=== PATIENT | female | born 1980 | race Caucasian/White ===

== ENCOUNTER 2018-07-07 01:26 | Outpatient (CLI) | payer OTHER, SELFPAY ==
--- NOTE | 2018-07-07 11:37 | DI.MAMMO_ITS ---
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 The breasts are heterogeneously dense. No dominant mass or clumped microcalcification is identified in either breast. Scattered punctate microcalcifications are noted, predominantly in the left breast. Today's examination is a baseline examination. CONCLUSION: No specific evidence of malignancy at this time. Routine screening examinations are suggested at yearly intervals due to the family history of breast carcinoma. Category 1, breast density category C. MQSA ASSESSMENT OF FINDINGS: Negative. Category 1. Patient will receive a letter notifying them of these results. Bi-RADS category C. The breasts are heterogeneously dense, which may obscure small masses.
== END 2018-07-07 01:46 ==
PROVIDERS: PCP Emergency Medicine; Visit Provider Obstetrics & Gynecology
DX: Z12.31 Encounter for screening mammogram for malignant neoplasm of breast (principal); Z80.3 Family history of malignant neoplasm of breast
CPT/HCPCS: 77063; 77067

== ENCOUNTER 2018-08-09 15:13 | Outpatient (CLI) | payer OTHER, SELFPAY ==
--- NOTE | 2018-08-09 15:07 | DI.RAD_ITS ---
SYMPTOMS/DIAGNOSIS: ANKLE PAIN LEFT ANKLE: Comparison is made with [id number]. There is narrowing of the tibiotalar joint space greater laterally. There is also narrowing of the talofibular joint. There is mild periarticular spurring. No talar dome defect is visible. Degenerative changes are also seen at the talocalcaneal joint. The findings have slightly worsened when compared with 2014. IMPRESSION: Degenerative changes of the ankle.
== END 2018-08-09 15:33 ==
PROVIDERS: PCP Emergency Medicine; Visit Provider Physician Assistant Surgical
DX: M25.572 Pain in left ankle and joints of left foot (principal); M19.072 Primary osteoarthritis, left ankle and foot
CPT/HCPCS: 73610

== ENCOUNTER 2018-08-20 00:45 | Outpatient (CLI) | payer OTHER, SELFPAY ==
--- NOTE | 2018-08-20 11:41 | DI.MRI_ITS ---
SYMPTOM/DIAGNOSIS: LT ANKLE PAIN, M25.572 LEFT ANKLE MRI: Routine noncontrast examination. Comparison xray is 08/09/18. Post surgical artifact is seen in the lateral ankle. This does decrease evaluation of the lateral ankle ligaments and peroneal tendons. The medial ankle ligaments are intact as are the Achilles tendon and anterior ankle ligaments. Portions of the peroneal tendons are obscured due to the surgical artifact but appear grossly intact. The medial ankle ligaments are unremarkable. The anterior and posterior tibiofibular ligaments are intact. The posterior talofibular ligament appears intact. The anterior talofibular ligament is not well seen. This may in part be due to the orthopedic artifact. The calcaneal fibular ligament is poorly visualized due to the orthopedic hardware. There is marrow edema seen in the distal tibia and fibula and talus and calcaneus. No definite evidence to suggest an occult fracture or avascular necrosis is appreciated. Mild edema is seen in the soft tissues of the lateral ankle but no focal fluid collection is seen to suggest an abscess. The muscles show normal signal and size. No significant muscular fatty atrophy is appreciated. IMPRESSION: Limited examination of the lateral ankle due to the patient's post surgical artifact. Incomplete evaluation of the calcaneofibular and anterior talofibular ligaments is noted due to the artifact. Marrow edema seen in the hind foot and ankle but no evidence to suggest an occult fracture. No definite evidence of a ligament or tendon tear. See the above discussion.
== END 2018-08-20 01:05 ==
PROVIDERS: PCP Emergency Medicine; Visit Provider Student in an Organized Health Care Education/Training Program
DX: M25.572 Pain in left ankle and joints of left foot (principal); M89.9 Disorder of bone, unspecified; Z98.890 Other specified postprocedural states
CPT/HCPCS: 73721

== ENCOUNTER 2018-09-30 01:20 | Outpatient (CLI) | payer OTHER, SELFPAY ==
--- NOTE | 2018-09-30 08:03 | DI.RAD_ITS ---
SYMPTOM/DIAGNOSIS: LT ANKLE PAIN M25.572, CHRONIC 689.29 LEFT ANKLE INJECTION: Fluoroscopy Time: 4 sec Fluoroscopy was utilized by Dr. Ortiz during the performance of a left ankle injection. No images were saved. Please refer to the procedure report for complete details.
[2018-09-30] MEDS: Bupivacaine 0.5% Pres-Free 10 ML VIAL 3 ML IJ (10:44)
[2018-09-30] MEDS: Omnipaque 300 MG/ML 10 ML BTL IJ (10:44)
[2018-09-30] MEDS: methylPREDNISolone ACETATE 40 MG/ML VIAL IM (10:45)
--- NOTE | 2018-09-30 11:32 | W.PROCNOTE ---
Date of service: 09/30/18 Time of Service: 11:32 Procedure Note Date of procedure: 09/30/18 Procedure: Left ankle injection Surgeon/Proceduralist/Physician: Pascual Ortiz Procedure Diagnosis: Left ankle chondromalacia Procedure Indications: Albina has had persistent pain of the LEFT ankle from previous surgeries. Noninvasive measures have been tried. To serve as both diagnostic and therapeutic, an injection under fluoroscopy was recommended. I had discussed the risks of the procedure and the patient elected to proceed. Procedure Description: Albina was greeted in the flouroscopy room. The correct side was identified and the consent was reviewed with the patient and signed. The patient was then placed in the supine position on the fluoroscopy table. The LEFT ankle was then prepped with Chloraprep. The anterior injection starting point, at the medial shoulder, was identiifed by bony landmarks and fluoroscopy. The skin and soft tissue in the tract of the injection was anesthetized with 1% Lidocaine. A needle was then inserted deep into the ankle joint at the level of the recess between the medial tibia and talus. A small amount of Omnipaque solution was injected to confirm intraarticular placement. Once confirmed, the ankle was injected with 3cc of 0.5% Bupivicaine and 40mg of Depo-Medrol. Fluoroscopy showed contrast medial, superior, and lateral between the distal fibula and talus. The satellite tv technician was unable to save images due to malfunctioning of the system. A bandaid was placed on the injection site. The patient tolerated the procedure well and noted improvement in pre-injection pain.
== END 2018-09-30 01:40 ==
PROVIDERS: PCP Emergency Medicine; Visit Provider Student in an Organized Health Care Education/Training Program
DX: M25.572 Pain in left ankle and joints of left foot (principal); M94.272 Chondromalacia, left ankle and joints of left foot; G89.29 Other chronic pain
CPT/HCPCS: 20605; 77002; J1030

== ENCOUNTER 2020-04-03 08:09 | Outpatient (CLI) | payer OTHER, SELFPAY ==
[2020-04-05 07:30] LABS: COVID-19 RT-PCR Result NEGATIVE (Negative)
== END 2020-04-03 08:29 ==
PROVIDERS: PCP Emergency Medicine; Visit Provider Emergency Medicine
DX: Z11.59 Encounter for screening for other viral diseases (principal)
CPT/HCPCS: U0003

== ENCOUNTER 2021-12-09 21:33 | Observation (INO) | payer OTHER, SELFPAY ==
[2021-12-09 21:41] VITALS: BP 85/49; PULSE 70; RESP 18; TEMP 36.6; O2SAT 100
[2021-12-09 21:46] VITALS: BP 131/66
--- NOTE | 2021-12-09 22:00 | DI.CT_ITS ---
Exam(s) CT ABDOMEN PELVIS W EXAM: CT ABDOMEN PELVIS W INDICATION: RLQ pain. COMPARISON: No exams were available for comparison TECHNIQUE: FINDINGS: CT examination of the abdomen and pelvis was performed with a bolus infusion of 87 cc of Omnipaque 35 0. Images obtained through the lung bases are unremarkable. The liver contains an approximately 5 cm in diameter low-attenuation mass, this has areas predominant ly peripheral nodular enhancement suggestive of hemangioma. Multiphasic hepatic CT or MR recommended to confirm hemangioma, malignancy not absolutely excluded on this examination. Otherwise hepatic parenchyma is unremarkable except for a 1 cm low-attenuation left hepatic lobe nodu le and 1 cm low-attenuation peripherally enhancing right lobe hepatic nodule, consistent with benign disease period. Gallbladder and bile ducts are CT normal. Pancreas appears normal. Spleen is unremarkable in appearance. Adrenals appear normal. The kidneys are unremarkable with no evidence of hydronephrosis, nephrolithiasis, or renal mass.. Ur inary bladder unremarkable. Abdominal aorta is of normal diameter and no major vascular abnormality is seen. No abdominal wall hernia. No abdominal or pelvic adenopathy. There is a 13 cm in diameter heterogeneous mass in the pelvis, predominantly of intermediate attenuat ion raising the possibility of hemorrhagic process. There is a left corpus luteum. There is a large quantity of free fluid in pelvis and some free fluid is also seen in the upper abdominal cavity, adj acent to liver. The appearance would be consistent with a large hemorrhagic ovarian cyst or other he morrhagic or malignant mass of the pelvis. Additional evaluation with pelvic.ultrasound recommended. Appendix is normal. No evidence of diverticulitis or bowel obstruction. IMPRESSION: Large pelvic mass, suspect hemorrhagic characteristics, free fluid also noted in peritoneal cavity. Additional evaluation with pelvic ultrasound recommended.. RADIATION DOSE DELIVERED: 710.37mGy.cm Total DLP 710.37mGy.cm Total DLP !Error CTDIvol RADIATION OPTIMIZATION: All CT scans at this facility use at least one of these dose optimization te chniques: automated exposure control; mA and/or kV adjustment per patient size (includes targeted exa ms where dose is matched to clinical indication); or iterative reconstruction.
--- NOTE | 2021-12-09 22:05 | W.ED.GENAD ---
Discharge Plan Disposition Condition: Good Discharge Details Chief Complaint: Abd Prob Admit Date/Time: 12/10/21 00:37 Admit Provider: Nay Oseguera Attending Provider: Nay Oseguera Primary Care Provider: Brett Quick ED Provider: Peng Mcclendon Discharge Instructions Activity:: No strenuous activity x2w Equipment/Supplies:: No Equipment Needed Diet:: As Tolerated Discharge Orders Discharge Orders: Discharge Order (Routine); Ordered 12/10/21 Ordered By: Lisha Newman Discharge Data Discharge Date/Time-TO BE ENTERED AT DEPARTURE: 12/10/21 02:17 Medical Decision Making Patient is a pleasant 41-year-old female presenting today with chief complaint of right lower quadrant pain. She reports the pain began approximately 1.5 hours prior to arrival. States that this came on not long after eating dinner. Describes eating pizza with vegetables. States she has had multiple episodes of vomiting since the pain came on. She did have 1 bowel movement which she describes as normal. She denies any pain like this historically. Past surgical history is pertinent for exploratory laparoscopy for endometriosis. Patient has an IUD in place, she does not have a monthly menses. She denies any vaginal discharge. On exam, patient appears uncomfortable. She indicates the entire right lower quadrant as area of discomfort. However, no pain is focally elicited with palpation. No CVA tenderness. Patient otherwise appears healthy. Past medical history significant for endometriosis and anxiety. Concern at this time for potential appendicitis. Pain seems to be indicated to be a little higher than I would back for ovarian torsion. She denies any history of ovarian cyst. She denies being . We will obtain a UPT out of abundance of caution. Will obtain CT to evaluate for any potential ovarian as well as possible appendicitis. Also considered other pathology such as nephrolithiasis. Patient denies any urinary symptoms. Will treat pain and nausea, move forward with imaging. UPT negative. Labs reviewed, no significant abnormality. Reviewed imaging, concerned for large right ovarian cyst, 8.5cm. Have requested US tech. Awaiting CT images from radiologist. Unable to obtain US this evening. Waiting for read and will consult with OBGYN. FINDINGS: Liver: There is a 5.1 x 4.3 x 5.1 cm large round cystic structure within the liver. There are small peripheral regions of enhancement within this lesion, suggestive of a hemangioma. Gallbladder and bile ducts: No calcified stones. No ductal dilation. Pancreas: Normal. No ductal dilation. Spleen: Normal. No splenomegaly. Adrenal glands: Normal. No mass. Kidneys and ureters: Normal. No hydronephrosis. Stomach and bowel: Unremarkable. No obstruction. No mucosal thickening. Appendix: No evidence of appendicitis. Intraperitoneal space: There are small regions of free fluid in the abdomen and pelvis, predominantly in the perihepatic region and in the lower pelvis. No free air. Vasculature: No abdominal aortic aneurysm. Lymph nodes: No enlarged lymph nodes. Urinary bladder: The urinary bladder is displaced anteriorly, secondary to mass effect from the large pelvic lesion. Reproductive: There is a large heterogeneous cystic structure in the right aspect of the pelvis measuring approximately 13.0 x 7 x 7.9 cm. This lesion is heterogeneous with regions of hyperdensity, isodensity and hypodensity. Bones/joints: No acute fracture. Soft tissues: Unremarkable. IMPRESSION: 1. Large heterogeneous cystic structure in the right aspect of the pelvis. This finding is concerning for large hematoma versus pelvic mass. An ultrasound of the pelvis is recommended for further evaluation. 2. THIS REPORT CONTAINS FINDINGS THAT MAY BE CRITICAL TO PATIENT CARE. The findings were verbally communicated via telephone conference with PENG MCCLENDON at 12:06 AM EST on 12/10/2021. The findings were acknowledged and understood. Discussed with patient. Consulted with Dr. Oseguera. She advised that patient should have the cyst removed. She requested that I discuss fertility wishes with epatient. Spoke with patient, she does not wish to have children in the future and would like to move forward with extraction of the ovary and cystic strcture. Spoke with Dr. Oseguera again. Plan is to admit the patient for pain and nausea control, US in the AM with likely surgical intervention. She advised that, as [facility], no immediate intervention is needed this evening. Patient's pain and nausea has been under control after 4mg Zofran and 4mg Morphine. She is in agreement with admission. Spoke with her and relayed informaiton. All of her questions and concerns were addressed and sh eis in agreement with this plan. HPI General Mode of arrival: ambulatory. Date/Time Provider Initiated Documentation: 12/09/21 22:02. Information obtained by: patient, family (spoke with on the phone) and RN notes reviewed. History of Present Illness 41 year old F presents to the emergency department with the chief complaint of RLQ pain, described as severe, with intensity rated at 9. Quality is described as stabbing, and is localized to the abdomen. Patient reports no radiation. Patient started experiencing this hour(s) and it has been constant. improves with No relieving factors improve symptom(s), No exacerbating factors reported . Patient notes loss of appetite and nausea/vomiting; denies chest pain, diaphoresis, fever/chills, headaches, rash and shortness of breath. Patient did receive the following treatments prior to arrival, none Related Data Home Medications Medication Instructions Recorded Confirmed multivitamin-ferrous 1 tab-cap PO DAILY tab-cap 11/12/16 08/08/21 fumarate-folic acid 18 mg-400 mcg tablet (Daily Multiple) lorazepam 0.5 mg tablet 0.5 mg PO QHS PRN #30 tab 02/04/20 08/08/21 prednisone 10 mg tablet 10 mg PO DAILY #18 tab 04/23/20 08/08/21 Previous Rx's Medication Instructions Recorded lorazepam 0.5 mg tablet 0.5 mg PO QHS PRN #30 tab 02/04/20 prednisone 10 mg tablet 10 mg PO DAILY #18 tab 04/23/20 Allergies Allergy/AdvReac Type Severity Reaction Status Date / Time No Known Allergies Allergy Verified 08/08/21 09:30 General Stated Complaint: Abd Prob DALLIN: 3 Review of Systems Constitutional Constitutional: Reports as per HPI, Denies chills, Denies fatigue, Denies fever(s) and Denies headache(s) ENT Ears, Nose, Mouth, and Throat: Denies headache(s) Cardiovascular Cardiovascular: Reports as per HPI, Denies chest pain and Denies dyspnea Respiratory Respiratory: Reports as per HPI, Denies cough and Denies dyspnea Gastrointestinal Gastrointestinal: Reports as per HPI Musculoskeletal Musculoskeletal: Reports as per HPI and Denies back pain Integumentary/Breasts Skin/Breast: Reports as per HPI and Denies rash Neurologic Neurologic: Reports as per HPI and Denies headache(s) Endocrine Endocrine: Denies fatigue PFSH All Active Problems (Updated 12/10/21 @ 16:19 by Lisha Newman MD) Anxiety (Chronic) Endometriosis (Acute 06/14/14) improved with surgery Medical History (Updated 12/10/21 @ 16:19 by Lisha Newman MD) Allergic rhinitis (11/22/13) Chronic pain of left ankle (06/14/14) surgery x 2 Left hamstring injury Multiple nevi (07/02/16) Nausea & vomiting Ovarian mass, right Pelvic pain Surgical History (Updated 12/10/21 @ 16:18 by Lisha Newman MD) ANKLE SURGERY Left ankle; 09/27 [facility]; 10/27 [facility] History of orthopedic surgery Family History Mother No problems noted. Father Neoplasm PROSTATE/LUNG Brother No problems noted. Grandfather Neoplasm LIVER Grandfather Essential hypertension Heart disease Hyperlipidemia Grandmother Neoplasm BREAST Grandmother Stroke Social History Smoking/Tobacco Use Status: Never Smoking risk assessment performed?: Yes Drug use: Never Substance use type: does not use Do you feel safe at home: Yes Do you feel safe in your relationship?: Yes History History 2 Para 2 Hx # Term Pregnancies Multiple births Hx # Pregnancies Ectopic pregnancies AB induced Hx Number of Living Children 2 AB spontaneous Exam Const General: cooperative, not healthy appearing, uncomfortable, no acute distress, well developed and ill appearing acutely Nutritional Appearance: average body habitus and well nourished Orientation: alert and awake HENMT Head: normal to inspection Mouth: moist mucous membranes Resp Effort & Inspection: normal respiratory effort, able to speak in complete sentences and no respiratory distress Auscultation: clear to auscultation bilaterally, no rales, no rhonchi and no wheezes Cardio Rate: regular rate Rhythm: regular rhythm Heart Sounds: S1 normal and S2 normal GI Inspection: normal to inspection Palpation: soft, not firm, no guarding, no masses, not rigid, tender (indicates the RLQ but no pain elicited with palpation) and No ascites Back/Spine/Pelvis Back: no CVA tenderness Skin General skin exam: no rashes or lesions noted Trauma: no lacerations or abrasions Neuro General: patient alert and patient awake Cognition: normal cognition Speech: speech normal Gait: normal gait Psych Appearance: grossly normal and well kempt Mental Status: mental status grossly normal Speech and Movement: speech and movement normal Course Vital Signs Vital signs: Vital Signs Temperature 36.6 C 12/09/21 21:41 Pulse 70 12/09/21 21:41 Respiratory Rate 18 12/09/21 21:41 Blood Pressure 85/49 L 12/09/21 21:41 Pulse Oximetry 100 12/09/21 21:41 Temperature 36.6 C 12/09/21 21:41 Pulse 70 12/09/21 21:41 Respiratory Rate 18 12/09/21 21:41 Respiratory Effort 12/09/21 21:47 Blood Pressure 131/66 12/09/21 21:46 Blood Pressure Position Supine 12/09/21 21:41 Pulse Oximetry 100 12/09/21 21:41 Oxygen Delivery Method Room Air 12/09/21 21:41 Oxygen Flow Rate 0 12/09/21 21:41 Pain Level 9 12/09/21 21:41 PAWSS Have you Been Recently Intoxicated or Drunk Within the Last 30 days?: No Have you Ever Experienced Previous Episodes of Alcohol Withdrawal?: No Have you ever Experienced Withdrawal Seizures?: No Have you ever Experienced Delirium Tremens(DT)s?: No Have you ever undergone Alcohol Rehabilitation Treatment (i.e, inpt ot outpatient treatment programs)?: No Have you ever Experienced Blackouts?: No Have you ever Combined Alcohol with other Downers within the last 90 days?: No Have you ever Combined Alcohol with any other Substance of Abuse during the last 90 days?: No Positive Blood Alcohol level on Presentation? [PCS.BAL]: No Evidence of Increased Autonomic Activity (i.e. HR>120, tremor, sweating, agitation, nausea)?: No Result: 0
[2021-12-09] MEDS: Normal Saline 1,000 ML 1000 ML IV (22:35)
[2021-12-09 22:38] LABS: Abs Immature Grans 0.02 10^3/uL (0.0-0.06); Absolute Basophil Count 0.04 10^3/uL (0.0-0.2); Absolute Eosinophil Count 0.04 10^3/uL (0.0-0.7); Absolute Lymphocyte Count 1.89 10^3/uL (1.2-3.4); Absolute Monocyte Count 0.63 10^3/uL (0.1-0.8); Absolute Neutrophil Count 7.96 10^3/uL (1.2-6.7); Basophils % 0.4; Eosinophils % 0.4; HCT 38.2 % (36.0-46.0); HGB 12.3 g/dL (11.2-15.7); Immature Grans % 0.2; Lymphocytes % 17.9; MCH 28.5 pg (27.0-33.0); MCHC 32.2 % (32.0-36.0); MCV 88.4 fL (80-95); MPV 10.1 fL (8.0-11.0); Neutrophils % 75.1; Nucleated RBC 0 %; Platelet Count 245 10^3/uL (130-400); RBC 4.32 10^6/uL (3.93-5.22); RDW 12.6 % (11.7-14.6); RDW-SD 41.5 fL; WBC 10.58 10^3/uL (4.4-10.8)
[2021-12-09 22:42] LABS: Clarity Cloudy (Clear); Specific Gravity 1.025 (1.005-1.025)
[2021-12-09 22:43] LABS: Bilirubin Negative (Negative); Blood Negative (Negative); Glucose Negative (Negative); Ketones 15 mg/dL (Negative); Leukocyte Esterase Negative (Negative); Nitrite Negative (Negative); Urobilinogen 0.2 EU/dL (Up TO 0.2)
[2021-12-09 22:47] LABS: Lipase 36 U/L (73-393)
[2021-12-09] MEDS: Ondansetron 4 MG/2 ML VIAL IVP (22:47)
[2021-12-09] MEDS: MORPHine 10 MG/ML VIAL 4 MG IVP (22:48)
[2021-12-09 22:55] LABS: ALT 21 U/L (14-59); AST 15 U/L (15-37); Albumin 3.8 g/dL (3.4-5.0); Alkaline Phosphatase 55 U/L (46-116); Anion Gap 8.3 mmol/L (3-11); BUN 14 mg/dL (7-18); Bilirubin, Total 0.3 mg/dL (0.2-1.0); CO2 26.7 mmol/L (21.0-32.0); CREATININE 0.8 mg/dL (0.55-1.02); Calcium 9.3 mg/dL (8.5-10.1); Chloride 102 mmol/L (98-107); Glucose 106 mg/dL (74-106); Sodium 137 mmol/L (136-145)
[2021-12-10] VITALS (13 sets, daily range): BP systolic 106–130; BP diastolic 65–79; PULSE 52–75; RESP 15–18; TEMP 36.3–37; O2SAT 95–100; BMI 21.7
--- NOTE | 2021-12-10 | DI.US_ITS ---
Exam(s) US PELVIS TRANSVAGINAL EXAM: US PELVIS TRANSVAGINAL CLINICAL HISTORY: RT OVARIAN MASS,? TORSION VS HEMORRHAGIC CYST,ACUTE RLQ PAIN TECHNIQUE: Ultrasound performed using standard protocol. COMPARISON: US OB US 2-3 TRIMESTER TRANSABD*P from 06/08/2015 FINDINGS: Pelvic ultrasound was performed transabdominally only due to the patient's degree of discomfort. The re is a right adnexal mass measuring up to 11 cm in diameter. This is heterogeneous in appearance an d shows some mild internal vascularity. There is a moderate quantity of free fluid in the pelvis. L eft ovary is unremarkable in appearance measuring 26 x 31 x 27 millimeters. Uterus appears normal with an IUD in appropriate position, endometrial stripe is about 7 millimeters in thickness. Uterus measures 8.3 x 3.0 x 3.8 cm. IMPRESSION: Right ovarian mass versus right ovarian enlargement secondary to ovarian torsion. Heterogeneous appe arance is nonspecific but may indicate areas of internal hemorrhage. Abdominal and pelvic CT obtaine d a few hours earlier showed moderate quantity of pelvic fluid and fluid in the right upper quadrant as well. DATA REPOSITORY:
--- NOTE | 2021-12-10 00:19 | DI.VRAD_ITS ---
PROCEDURE INFORMATION: Exam: CT Abdomen And Pelvis With Contrast Exam date and time: 12/09/2021 10:15 PM Age: 41 years old Clinical indication: Rlq pain TECHNIQUE: Imaging protocol: Computed tomography of the abdomen and pelvis with contrast. Radiation optimization: All CT scans at this facility use at least one of these dose optimization techniques: automated exposure control; mA and/or kV adjustment per patient size (includes targeted exams where dose is matched to clinical indication); or iterative reconstruction. Contrast material: OMNIPAQUE 350; Contrast volume: 87 ml; Contrast route: INTRAVENOUS (IV); COMPARISON: SC OB US 2-3 TRIMESTER TRANSABD*P 06/08/2015 3:56 PM FINDINGS: Liver: There is a 5.1 x 4.3 x 5.1 cm large round cystic structure within the liver. There are small peripheral regions of enhancement within this lesion, suggestive of a hemangioma. Gallbladder and bile ducts: No calcified stones. No ductal dilation. Pancreas: Normal. No ductal dilation. Spleen: Normal. No splenomegaly. Adrenal glands: Normal. No mass. Kidneys and ureters: Normal. No hydronephrosis. Stomach and bowel: Unremarkable. No obstruction. No mucosal thickening. Appendix: No evidence of appendicitis. Intraperitoneal space: There are small regions of free fluid in the abdomen and pelvis, predominantly in the perihepatic region and in the lower pelvis. No free air. Vasculature: No abdominal aortic aneurysm. Lymph nodes: No enlarged lymph nodes. Urinary bladder: The urinary bladder is displaced anteriorly, secondary to mass effect from the large pelvic lesion. Reproductive: There is a large heterogeneous cystic structure in the right aspect of the pelvis measuring approximately 13.0 x 7 x 7.9 cm. This lesion is heterogeneous with regions of hyperdensity, isodensity and hypodensity. Bones/joints: No acute fracture. Soft tissues: Unremarkable. IMPRESSION: 1. Large heterogeneous cystic structure in the right aspect of the pelvis. This finding is concerning for large hematoma versus pelvic mass. An ultrasound of the pelvis is recommended for further evaluation. 2. THIS REPORT CONTAINS FINDINGS THAT MAY BE CRITICAL TO PATIENT CARE. The findings were verbally communicated via telephone conference with PENG CABALLERO at 12:06 AM EST on 12/10/2021. The findings were acknowledged and understood. Dictated and Authenticated by: Marion Betancourt MD. Ordering:UMESH Landa MD
--- NOTE | 2021-12-10 00:44 | W.GYNCONSULT ---
Date of service: 12/10/21 Time of Service: 00:45 Assessment and Plan Assessment and plan (1) Ovarian mass, right: Status: Acute Assessment and plan: Patient has a significantly large complex ovarian mass with a history of endometriosis in the past. This may be hemorrhagic cyst, versus ovarian torsion, versus other ovarian pathology. Patient does not wish to preserve his ovary, pelvic ultrasound available and possible surgical intervention would be the plan. She will be admitted for pain control, antiemetics, and be placed n.p.o. Further evaluation and delineation of the mass be performed with ultrasound in the morning. Surgical intervention may be warranted. (2) Endometriosis: Status: Acute (3) Pelvic pain: Status: Acute Assessment and plan: Antiemetics, pain control, observation (4) Nausea & vomiting: Status: Acute History of Present Illness History of Present Illness Chief Complaint: Acute onset right lower quadrant pain with nausea and vomitting Narrative: Kindly asked to see him potential 1-year-old 2 para 2 who presented to the emergency department this night with acute onset of lower abdominal pain, nausea and vomiting. She has never had an accident like this previously. She has a gynecologic care in [place] with Dr. Casanova. She has a Mirena system in place for contraception, placed 2015. Consults Consult date: 12/10/21 Requesting physician: Syeda Mcclendon Review of Systems All systems reviewed & are unremarkable except as noted in HPI and below Constitutional Constitutional: Denies chills, Denies fever(s), Denies lethargy and Denies weakness Eyes Eyes: Reports system reviewed and no additional complaints, except as documented ENT Ears, Nose, Mouth, and Throat: Reports system reviewed and no additional complaints, except as documented Respiratory Respiratory: Denies chest congestion and Denies cough Gastrointestinal Gastrointestinal: Reports as per HPI, Reports bloating, Reports cramping, Denies early satiety, Denies diarrhea, Denies loose stools, Reports nausea and Reports vomiting Genitourinary Genitourinary: Denies abnormal vaginal bleeding, Reports amenorrhea, Denies dyspareunia and Denies vaginal discharge Musculoskeletal Musculoskeletal: Denies back pain and Denies myalgias Neurologic Neurologic: Denies weakness Psychiatric Psychiatric: Reports system reviewed and no additional complaints, except as documented PFSH All Active Problems (Updated 12/10/21 @ 00:49 by Nay Oseguera DO) Nausea & vomiting (Acute) Pelvic pain (Acute) Ovarian mass, right (Acute) Left hamstring injury (Acute) Anxiety (Chronic) Multiple nevi (Acute 07/02/16) Endometriosis (Acute 06/14/14) improved with surgery Chronic pain of left ankle (Acute 06/14/14) surgery x 2 Allergic rhinitis (Acute 11/22/13) Surgical History ANKLE SURGERY Left ankle; 09/27 [facility]; 10/27 [facility] Family History Mother No problems noted. Father Neoplasm PROSTATE/LUNG Brother No problems noted. Grandfather Neoplasm LIVER Grandfather Essential hypertension Heart disease Hyperlipidemia Grandmother Neoplasm BREAST Grandmother Stroke Social History Smoking/Tobacco Use Status: Never Smoking risk assessment performed?: Yes Drug use: Never Substance use type: does not use Do you feel safe at home: Yes Do you feel safe in your relationship?: Yes Female Reproductive History Menstrual Duration of menses: other (absent due to Mirena) control method: progestin IUCD History History 2 Para 2 Hx # Term Pregnancies Multiple births Hx # Pregnancies Ectopic pregnancies AB induced Hx Number of Living Children 2 AB spontaneous Exam Const General: cooperative, healthy appearing, comfortable, no acute distress, well developed and well groomed Nutritional Appearance: average body habitus Orientation: alert and oriented x3 HENMT Head: normal to inspection Eyes General: appearance normal, both eyes and all related structures Neck Neck: normal visual inspection, full ROM and supple Resp Effort & Inspection: normal respiratory effort, able to speak in complete sentences, no audible wheezes and no cough Cardio Rate: regular rate Rhythm: regular rhythm GI Inspection: normal to inspection Palpation: soft, firm, guarding (mild) in the RLQ, mass (RLQ), not rigid and tender Skin General skin exam: no rashes or lesions noted Extrem General: normal to inspection and no clubbing, cyanosis or edema Results Last Vital Signs Temp 97.9 F 12/09/21 21:41 Pulse 70 12/09/21 21:41 Resp 18 12/09/21 21:41 BP 131/66 12/09/21 21:46 Pulse Ox 100 12/09/21 21:41 Labs Result diagrams: 12/09/21 22:30 12/09/21 22:30 Labs: Laboratory Results - last 24 hr 12/09/21 12/09/21 12/09/21 22:30 22:30 22:30 WBC 10.58 RBC 4.32 Hgb 12.3 Hct 38.2 MCV 88.4 MCH 28.5 MCHC 32.2 RDW 12.6 Plt Count 245 MPV 10.1 Immature Gran % 0.2 Neutrophils % 75.1 Lymphocytes % 17.9 Monocytes % 6.0 Eosinophils % 0.4 Basophils % 0.4 Nucleated RBC % 0 Absolute Neutrophils 7.96 H Absolute Lymphocytes 1.89 Absolute Monocytes 0.63 Absolute Eosinophils 0.04 Absolute Basophils 0.04 Sodium 137 Potassium 4.0 Chloride 102 Carbon Dioxide 26.7 Anion Gap 8.3 BUN 14 Creatinine 0.8 Estimated GFR/1.73 m2 >= 60.00 Glucose 106 Calcium 9.3 Magnesium 2.0 Total Bilirubin 0.3 AST 15 ALT 21 Alkaline Phosphatase 55 Total Protein 7.0 Albumin 3.8 Lipase 36 Urine Color Urine Clarity Urine pH Ur Specific [place] Urine Protein Urine Ketones Urine Blood Urine Nitrite Urine Bilirubin Urine Urobilinogen Ur Leukocyte Esterase Urine Glucose 12/09/21 22:30 WBC RBC Hgb Hct MCV MCH MCHC RDW Plt Count MPV Immature Gran % Neutrophils % Lymphocytes % Monocytes % Eosinophils % Basophils % Nucleated RBC % Absolute Neutrophils Absolute Lymphocytes Absolute Monocytes Absolute Eosinophils Absolute Basophils Sodium Potassium Chloride Carbon Dioxide Anion Gap BUN Creatinine Estimated GFR/1.73 m2 Glucose Calcium Magnesium Total Bilirubin AST ALT Alkaline Phosphatase Total Protein Albumin Lipase Urine Color Yellow Urine Clarity Cloudy Urine pH 7.0 Ur Specific [place] 1.025 Urine Protein Negative Urine Ketones 15 H Urine Blood Negative Urine Nitrite Negative Urine Bilirubin Negative Urine Urobilinogen 0.2 Ur Leukocyte Esterase Negative Urine Glucose Negative Imaging CT scan - pelvis: report reviewed and image reviewed US - pelvic: pending Imaging Studies: Approximate 13 x 7 centimeter complex right adnexal mass consistent with hemorrhagic cyst versus endometrioma. Unsure as to whether there is component of torsion. Ultrasound unavailable this evening. Patient has no desire to maintain her ovary. IUD noted within the endometrial cavity. Uterus displaced leftward due to pelvic mass.
[2021-12-10 01:11] LABS: Source Nasopharynx
[2021-12-10 01:49] LABS: COVID-19 PCR Negative (Negative)
--- NOTE | 2021-12-10 09:02 | W.PM.PROGNOT ---
Date of Service Date of service: 12/10/21 Time of Service: 09:02 Assessment and Plan Assessment and plan (1) Ovarian mass, right: Status: Acute Assessment and plan: Discussed the sono findings with the pt and my recommendations to remove the right ovary and mass. She is agreeable to this plan. We will look into adding the case on today with the OR. Will plan for Laparoscopic Right Salpingo-oophorectomy, surgery as indicated. (2) Pelvic pain: Status: Acute Subjective Subjective Interval history since last seen: Pt says pain has improved since last night. It is now a dull ache. Sono is c/w the CT scan showing a large ~11cm R adnexal mass. It has minimal vascularity. There is moderate free fluid. Lef tovary appears normal. Exam Const General: healthy appearing, comfortable and no acute distress GI Other: Mild tenderness across lower abdomen. Objective Last Vital Signs Temp 98.1 F 12/10/21 07:30 Pulse 75 12/10/21 07:30 Resp 16 12/10/21 07:30 BP 130/76 12/10/21 07:30 Pulse Ox 97 12/10/21 07:30 Laboratory Results - last 24 hr 12/09/21 12/09/21 12/09/21 22:30 22:30 22:30 WBC 10.58 RBC 4.32 Hgb 12.3 Hct 38.2 MCV 88.4 MCH 28.5 MCHC 32.2 RDW 12.6 Plt Count 245 MPV 10.1 Immature Gran % 0.2 Neutrophils % 75.1 Lymphocytes % 17.9 Monocytes % 6.0 Eosinophils % 0.4 Basophils % 0.4 Nucleated RBC % 0 Absolute Neutrophils 7.96 H Absolute Lymphocytes 1.89 Absolute Monocytes 0.63 Absolute Eosinophils 0.04 Absolute Basophils 0.04 Sodium 137 Potassium 4.0 Chloride 102 Carbon Dioxide 26.7 Anion Gap 8.3 BUN 14 Creatinine 0.8 Estimated GFR/1.73 m2 >= 60.00 Glucose 106 Calcium 9.3 Magnesium 2.0 Total Bilirubin 0.3 AST 15 ALT 21 Alkaline Phosphatase 55 Total Protein 7.0 Albumin 3.8 Lipase 36 Urine Color Urine Clarity Urine pH Ur Specific [place] Urine Protein Urine Ketones Urine Blood Urine Nitrite Urine Bilirubin Urine Urobilinogen Ur Leukocyte Esterase Urine Glucose COVID-19 Source SARS-CoV-2 (PCR) 12/09/21 12/10/21 22:30 00:55 WBC RBC Hgb Hct MCV MCH MCHC RDW Plt Count MPV Immature Gran % Neutrophils % Lymphocytes % Monocytes % Eosinophils % Basophils % Nucleated RBC % Absolute Neutrophils Absolute Lymphocytes Absolute Monocytes Absolute Eosinophils Absolute Basophils Sodium Potassium Chloride Carbon Dioxide Anion Gap BUN Creatinine Estimated GFR/1.73 m2 Glucose Calcium Magnesium Total Bilirubin AST ALT Alkaline Phosphatase Total Protein Albumin Lipase Urine Color Yellow Urine Clarity Cloudy Urine pH 7.0 Ur Specific [place] 1.025 Urine Protein Negative Urine Ketones 15 H Urine Blood Negative Urine Nitrite Negative Urine Bilirubin Negative Urine Urobilinogen 0.2 Ur Leukocyte Esterase Negative Urine Glucose Negative COVID-19 Source Nasopharynx SARS-CoV-2 (PCR) Negative PAWSS Have you Been Recently Intoxicated or Drunk Within the Last 30 days?: No Have you Ever Experienced Previous Episodes of Alcohol Withdrawal?: No Have you ever Experienced Withdrawal Seizures?: No Have you ever Experienced Delirium Tremens(DT)s?: No Have you ever undergone Alcohol Rehabilitation Treatment (i.e, inpt ot outpatient treatment programs)?: No Have you ever Experienced Blackouts?: No Have you ever Combined Alcohol with other Downers within the last 90 days?: No Have you ever Combined Alcohol with any other Substance of Abuse during the last 90 days?: No Positive Blood Alcohol level on Presentation? [PCS.BAL]: No Evidence of Increased Autonomic Activity (i.e. HR>120, tremor, sweating, agitation, nausea)?: No Result: 0
--- NOTE | 2021-12-10 09:09 | W.ANESPRE ---
General Info Date of Service Date Performed: 12/10/21 Height: 5 ft 6 in Weight: 61.235 kg Body Mass Index (BMI): 21.7 Surgical Procedure: Operation Date: 12/10/21 10:25 Proposed Procedure Side Surgeon p Diagnostic Laparoscopy Lisha Newman MD Meds Allergies and Home Medications Allergies Allergy/AdvReac Type Severity Reaction Status Date / Time No Known Allergies Allergy Verified 08/08/21 09:30 Home Medication Medication Instructions Recorded multivitamin-ferrous 1 tab-cap PO DAILY tab-cap 11/12/16 fumarate-folic acid 18 mg-400 mcg tablet (Daily Multiple) lorazepam 0.5 mg tablet 0.5 mg PO QHS PRN #30 tab 02/04/20 prednisone 10 mg tablet 10 mg PO DAILY #18 tab 04/23/20 Current Visit Medications: Current Medications Generic Name Dose Route Start Last Admin Trade Name Freq PRN Reason Stop Dose Admin Sodium Chloride 500 mls @ 0 mls/hr 12/10/21 00:37 Saline 500ml Bag IV PRN PRN As Directed Ringer's Solution 1,000 mls @ 125 mls/hr 12/10/21 09:00 IV INFUSION [facility] IV Miscellaneous Supplies 1 each 12/09/21 22:15 Iv Access IV DIRECTED [facility] IV Miscellaneous Supplies 1 each 12/10/21 00:45 Iv Access IV DIRECTED [facility] Iohexol 100 ml 12/09/21 22:30 Omnipaque 350 Mg/Ml 100 Ml Btl IJ 01/08/22 23:59 DIRECTED [facility] Morphine Sulfate 1 - 2 mg 12/10/21 00:37 Morphine 2 Mg/Ml Syr IVP Q1H PRN PRN Ondansetron HCl 4 mg 12/10/21 00:37 Ondansetron 4 Mg/2 Ml Vial IVP Q4H PRN PRN Sodium Chloride 0 ml 12/09/21 22:13 Normal Saline Flush 10 Ml Syr IVP PRN PRN Sodium Chloride 0 ml 12/10/21 00:37 Normal Saline Flush 10 Ml Syr IVP PRN PRN PFSH Active Problems Active Problems: Problem Status Onset Code Nausea & vomiting R11.2 Pelvic pain R10.2 Ovarian mass, right N83.8 Left hamstring injury S76.302A Anxiety F41.9 Multiple nevi 07/02/16 D22.9 Endometriosis 06/14/14 N80.9 Chronic pain of left ankle 06/14/14 M25.572, G89.29 Allergic rhinitis 11/22/13 J30.9 Surgical History Surgical History ANKLE SURGERY Left ankle; 09/27 [facility]; 10/27 [facility] Tobacco Smoking/Tobacco Use Status: Never Substance Use Substance use: Never Substance use type: does not use Prental History History 2 Para 2 Hx # Term Pregnancies Multiple births Hx # Pregnancies Ectopic pregnancies AB induced Hx Number of Living Children 2 AB spontaneous Vital Signs and Lab Results Vital Signs Most Recent Vital Signs in EMR: Most Recent Vital Signs Temp Pulse Resp BP Pulse Ox 36.7 C 75 16 130/76 97 12/10/21 07:30 12/10/21 07:30 12/10/21 07:30 12/10/21 07:30 12/10/21 07:30 Point of Care Results Point of Care Results: POC- Test(urine) Negative 12/09/21 22:41 Lab Results Result Diagrams: 12/09/21 22:30 12/09/21 22:30 Blood Type / Crossmatch: No Data to Display Complete Blood Count: White Blood Count 10.58 10^3/uL (4.4-10.8) 12/09/21 22:30 12/09/21 Red Blood Count 4.32 10^6/uL (3.93-5.22) 12/09/21 22:30 12/09/21 Hemoglobin 12.3 g/dL (11.2-15.7) 12/09/21 22:30 12/09/21 Hematocrit 38.2 % (36.0-46.0) 12/09/21 22:30 12/09/21 Platelet Count 245 10^3/uL (130-400) 12/09/21 22:30 12/09/21 Complete Metabolic Panel: Sodium Level 137 mmol/L (136-145) 12/09/21 22:30 12/09/21 Potassium Level 4.0 mmol/L (3.5-5.1) 12/09/21 22:30 12/09/21 Chloride Level 102 mmol/L (98-107) 12/09/21 22:30 12/09/21 Carbon Dioxide Level 26.7 mmol/L (21.0-32.0) 12/09/21 22:30 12/09/21 Blood Urea Nitrogen 14 mg/dL (7-18) 12/09/21 22:30 12/09/21 Creatinine 0.8 mg/dL (0.55-1.02) 12/09/21 22:30 12/09/21 Estimated GFR/1.73 m2 >= 60.00 (mL/min/1.73m2) 12/09/21 22:30 12/09/21 Magnesium Level 2.0 mg/dL (1.8-2.4) 12/09/21 22:30 12/09/21 Calcium Level 9.3 mg/dL (8.5-10.1) 12/09/21 22:30 12/09/21 Albumin 3.8 g/dL (3.4-5.0) 12/09/21 22:30 12/09/21 Glucose Level 106 mg/dL (74-106) 12/09/21 22:30 12/09/21 Liver Function Panel: Alanine Aminotransferase (ALT/SGPT) 21 U/L (14-59) 12/09/21 22:30 12/09/21 Aspartate Amino Transf (AST/SGOT) 15 U/L (15-37) 12/09/21 22:30 12/09/21 Coagulation Panel: No Data to Display Cardiac Panel: No Data to Display Arterial Blood Gas: No Data to Display Venous Blood Gas: No Data to Display Pancreas Panel: Lipase 36 U/L (73-393) 12/09/21 22:30 12/09/21 Thyroid Panel: No Data to Display Infectious Disease: Coronavirus (COVID-19)(PCR) Negative (Negative) 12/10/21 00:55 12/10/21 Coronavirus 2019 Source Nasopharynx 12/10/21 00:55 12/10/21 Blood Cultures: No Data to Display Toxicology Panel: No Data to Display Panel: No Data to Display Anesthesia Assessment and Plan Anesthesia History Personal History: No History of Anesthesia Complications and PONV (Opiods) Family History: No Family History of Anesthesia Complications Exercise Tolerance Exercise Tolerance: Metabolic Equivalents>4 Pertinent Negatives Pertinent Negatives: No Symptoms of GERD, No Major Cardiovascular Symptoms or Complaints, No Major Pulmonary Symptoms or Complaints and No History of CVA/TIA Cardiac & Pulmonary Exam Cardiac Exam: Normal S1/S2 Heart Sounds Pulmonary Exam: Clear Bilateral Breath Sounds Implantable Cardiac Device Does patient have a Pacemaker or an ICD?: No Airway Exam Known Difficult Airway: No Mallampati Class: 1 Mouth Opening: Normal (> 3cm) Thyromental Distance: Greater than 3 cm Neck Range of Motion: Full ROM Neck Circumference: Normal Teeth Condition: Normal Dentition ASA Classification ASA Score: ASA 2 Emergency Case?: No NPO Status NPO Status: NPO Clears >2 hours, Solids >8 hours Status Status: Negative HCG Anesthesia Plan Resuscitation Status: Full Code Anesthesia Technique: General Anesthesia Airway Planned: Endotracheal Tube Monitors Used: Standard Monitors
[2021-12-10] MEDS: Lactated Ringers 1,000 ML 125 ML IV (09:11)
--- NOTE | 2021-12-10 10:26 | CER_PTH ---
PATIENT: Albina Tony LOC: OBS U#:[id number] AGE/SX: 41/F ROOM: OBS.306 RE12/10/[address]: Nay Oseguera DO : 1980 BED: A DIS: 12/10/2021 SPEC #: [id number] RECD: 12/10/21 13:14 STATUS: GARETT REQ #: [id number] SAMY: 12/10/21 10:[address]: Lisha Newman DEPT: Surgical Specimen RECD BY: Soumya Delaney ENTERED: 12/10/21 13:17 SP TYPE: CER OTHR DR: DO Nay Mendez DO Tissues: 1 - CERVICAL BIOPSY 2 - OVARY NOT TUMOR W OR W/O TUBES Procedures: GROSS AND MICRO LEVEL 4 IMMUNOPEROXIDASE STAIN Comments: [id number]
[2021-12-10] MEDS: Bupivacaine 0.5% Pres-Free 30 ML VIAL (12:12)
--- NOTE | 2021-12-10 12:48 | ROE_ITS ---
Operative Note Operative Note DATE OF PROCEDURE: 12/10/21 PRE-OP DIAGNOSIS: Right adnexal mass Ruptured right ovarian cyst PROCEDURE: Laparoscopic right salpingooophorectomy, removal of endometriosis, lysis of adhesions SURGEON: Lisha Newman ASSISTING SURGEON: Georgette Davidson Refer to Anesthesia Record ESTIMATED BLOOD LOSS: 100 COMPLICATIONS: None Patient was transported to: PACU Patient's condition: stable Indications: The patient presented to the ED with sudden onset of right lower quadrant pain and was found to have a large right adnexal mass on CT scan and sono. Surgically dx'd history of endometriosis. Findings: The pelvis had a moderate amount of dark blood/cyst fluid. The right adnexa had a very large cyst with an obvious rupture oozing dark chocolaty fluid. The cyst was adhered to the right lateral pelvic side wall. The uterus had endometriotic lesions on the posterior aspect. There were small dark endometriotic lesions on the left ovary and it otherwise appeared normal. The right tube was adhered to the right ovary and cyst. The left tube appeared normal. Procedure Description: After informed consent was signed the patient was taken to the operating room and given GET anesthesia. SCDs were placed on her legs. She was prepped and draped in the dorsal lithotomy position in the [facility]. A alonzo catheter was introduced into her bladder. A time out was performed. The infraumbilical fold was injected with 5% marcaine with epi. A 12mm vertical incision was made in the infraumbilical fold. The skin was grasped with penetrating towel clamps and tented up. The visiport was used to enter the abdomen under direct visualization. Two lateral ports were inserted in the usu al fashion. The patient was placed in trendelenburg. The fluid was suctioned and irrigated. When the cyst was identified and the rupture was found the suction device was used to suction the remaining cyst fluid. The ureter was identified. Then the ligasure device was used to clamp cauterized and cut the infundibulopelvic ligament, the broad ligament and the proximal tube. Dissection was continued posteriorly through the cyst wall to avoid potential injury to the pelvic side wall. Once the specimen was removed further blunt dissection was used to pull the cyst wall off the pelvic side wall. There was a small distint cystic structure inferior to the cyst attached to the pelvic side wall. This was tented up and removed with the ligasure device. Good hemostasis was achieved at the dissection site with the ligasure device. The camera was switched to a 5mm camera and the endocatch bag was inserted through the umbilical port. The specimen was placed into the bag and removed through the umbilican incision. A second bag was used for the remaining smaller specimen pieces. The abdomen was thoroughly irrigated. The ureter was visualized and peristalsis was noted. Good hemostasis was noted again. The lateral ports were removed under direct visualization. Then the umbilical port was removed. The fascia was closed with a figure of eight suture. The skin was closed with 3-0 vicryl and skin slue. The patient was placed back into the supine position. She was moved to the stretcher and taken to the recovery room in stable condition.
[2021-12-10] MEDS: ACETAMINOPHEN 1,000 MG/100 ML BTL 400 MG IVPB (13:06)
--- NOTE | 2021-12-10 13:54 | W.ANESPOSTOP ---
Postoperative Evaluation Date, Time and Location Date Performed: 12/10/21 Time Performed: 13:54 Patient Location: Day Surgery Unit Vital Signs Most Recent Imported Vital Signs: Most Recent Vital Signs Temp Pulse Resp BP Pulse Ox 36.3 C L 52 L 16 117/72 99 12/10/21 13:31 12/10/21 13:31 12/10/21 13:31 12/10/21 13:31 12/10/21 13:31 Pain Score Most Recent Pain Score: Most Recent Pain Score Pain Level 6 12/10/21 13:31 Assessment Mental Status: Awake (Alert & Oriented to Patient Baseline) Airway and Respiratory Function: Patent airway with normal (patient baseline) respiratory exam Cardiovascular Function: Hemodynamically Stable Hydration Status: Adequately Hydrated Nausea & Vomiting: No Nausea or Vomiting Pain: Pain is tolerable per patient Peripheral Nerve Block: Patient did not receive a nerve block
--- NOTE | 2021-12-10 16:16 | W.PM.DS.N ---
DS: Diagnosis Discharge Diagnosis (1) Ovarian mass, right: Asessment and Plan: Uncomplicated Laparoscopic RSO with removal of cyst. (2) Pelvic pain: Discharge Plan Disposition Patient Disposition: HOME Condition: Good Discharge Details Reason For Visit: Ovarian Mass,Pelvic Pain Admit Date/Time: 12/10/21 00:37 Admit Provider: Nay Oseguera Attending Provider: Nay Oseguera Primary Care Provider: Brett Quick Hospital Course Hospital Course: Admitted with RLQ pain, found to have large R adnexal mass on CT scan and sono. Taken to OR for removal of what appeared to be a ruptured endometrioma. Surgery was uncomplicated and she recovered as expected. Home Meds and New Rx's Prescriptions: No Action Daily Multiple 1 EACH tablet 1 tab-cap PO DAILY 0RF lorazepam 0.5 mg tablet 0.5 mg PO QHS PRN (Reason: anxiety) Qty: 30 3RF Rx Instructions: One to three tablets hs prednisone 10 mg tablet 10 mg PO DAILY Qty: 18 0RF Rx Instructions: 30mg daily x3 days, 20mg daily x 3 days, then 10mg daily x3 days Discharge Instructions Stand Alone Forms: Anesthesia Discharge Inst., [facility] Post Gynecology Surgery, Khushi Patino (DSU) Activity:: No strenuous activity x2w Equipment/Supplies:: No Equipment Needed Diet:: As Tolerated Discharge Orders Discharge Orders: Discharge Order (Routine); Ordered 12/10/21 Ordered By: Lisha Newman DS: Summary Time Spent with Patient providing and/or coordinating discharge services: Less than 30 minutes Specific discharge activities: 15min Status at Discharge Functional status at discharge: independent ambulation Overall status at discharge: patient is progressing back to baseline Mental Status: mental status grossly normal Speech and Movement: speech and movement normal Mood: congruent mood Affect: normal affect Exam Psych Mental Status: mental status grossly normal Speech and Movement: speech and movement normal Mood: congruent mood Affect: normal affect DS: Data Vitals/I&O Vitals and I&O: Vital Signs Temperature 98.6 F 12/10/21 15:00 Temperature Source Oral 12/10/21 07:30 Pulse 73 12/10/21 15:00 Pulse Rhythm Regular 12/10/21 08:43 Respiratory Rate 18 12/10/21 15:00 Respiratory Effort Non-Labored 12/10/21 08:43 Respiratory Depth Normal 12/10/21 08:43 Respiratory Pattern Normal 12/10/21 08:43 Blood Pressure 112/69 12/10/21 15:00 Blood Pressure Position Supine 12/09/21 21:41 Pulse Oximetry 97 12/10/21 15:00 Respiratory End-tidal CO2 32 12/10/21 13:31 Oxygen Delivery Method Room Air 12/10/21 15:00 Oxygen Flow Rate 0 12/10/21 13:31 Pain Level 7 12/10/21 14:00 Intake & Output 12/09/21 12/10/21 12/10/21 23:59 11:59 23:59 Intake Total 1000 / 2073.167 1074.167 / 2073.167 Output Total 2200 / 2200 0 / 2200 Balance -1200 / -540.033 2420.167 / -125.833 Weight 135 lb 135 lb Intake: IV 1000 / 2003.167 1004.167 / 2003.167 Oral 70 / 70 Output: Urine 2200 / 2200 Emesis 0 / 0 Other: Urine Color Yellow Urine Appearance Clear Emesis Description None Data Completed and Pending Labs on day of discharge: Labs from last 24 hours 12/10/21 12/09/21 12/09/21 00:55 22:30 22:30 WBC 10.58 RBC 4.32 Hgb 12.3 Hct 38.2 MCV 88.4 MCH 28.5 MCHC 32.2 RDW 12.6 Plt Count 245 MPV 10.1 Immature Gran % 0.2 Neutrophils % 75.1 Lymphocytes % 17.9 Monocytes % 6.0 Eosinophils % 0.4 Basophils % 0.4 Nucleated RBC % 0 Absolute Neutrophils 7.96 H Absolute Lymphocytes 1.89 Absolute Monocytes 0.63 Absolute Eosinophils 0.04 Absolute Basophils 0.04 Sodium Potassium Chloride Carbon Dioxide Anion Gap BUN Creatinine Estimated GFR/1.73 m2 Glucose Calcium Magnesium Total Bilirubin AST ALT Alkaline Phosphatase Total Protein Albumin Lipase Urine Color Yellow Urine Clarity Cloudy Urine pH 7.0 Ur Specific [place] 1.025 Urine Protein Negative Urine Ketones 15 H Urine Blood Negative Urine Nitrite Negative Urine Bilirubin Negative Urine Urobilinogen 0.2 Ur Leukocyte Esterase Negative Urine Glucose Negative COVID-19 Source Nasopharynx SARS-CoV-2 (PCR) Negative 12/09/21 12/09/21 22:30 22:30 WBC RBC Hgb Hct MCV MCH MCHC RDW Plt Count MPV Immature Gran % Neutrophils % Lymphocytes % Monocytes % Eosinophils % Basophils % Nucleated RBC % Absolute Neutrophils Absolute Lymphocytes Absolute Monocytes Absolute Eosinophils Absolute Basophils Sodium 137 Potassium 4.0 Chloride 102 Carbon Dioxide 26.7 Anion Gap 8.3 BUN 14 Creatinine 0.8 Estimated GFR/1.73 m2 >= 60.00 Glucose 106 Calcium 9.3 Magnesium 2.0 Total Bilirubin 0.3 AST 15 ALT 21 Alkaline Phosphatase 55 Total Protein 7.0 Albumin 3.8 Lipase 36 Urine Color Urine Clarity Urine pH Ur Specific [place] Urine Protein Urine Ketones Urine Blood Urine Nitrite Urine Bilirubin Urine Urobilinogen Ur Leukocyte Esterase Urine Glucose COVID-19 Source SARS-CoV-2 (PCR) [facility] All Active Problems (Updated 12/10/21 @ 16:19 by Lisha Newman MD) Anxiety (Chronic) Endometriosis (Acute 06/14/14) improved with surgery Medical History (Updated 12/10/21 @ 16:19 by Lisha Newman MD) Allergic rhinitis (11/22/13) Chronic pain of left ankle (06/14/14) surgery x 2 Left hamstring injury Multiple nevi (07/02/16) Nausea & vomiting Ovarian mass, right Pelvic pain Surgical History (Updated 12/10/21 @ 16:18 by Lisha Newman MD) ANKLE SURGERY Left ankle; 09/27 [facility]; 10/27 [facility] History of orthopedic surgery Family History Mother No problems noted. Father Neoplasm PROSTATE/LUNG Brother No problems noted. Grandfather Neoplasm LIVER Grandfather Essential hypertension Heart disease Hyperlipidemia Grandmother Neoplasm BREAST Grandmother Stroke Social History Smoking/Tobacco Use Status: Never Smoking risk assessment performed?: Yes Drug use: Never Substance use type: does not use Do you feel safe at home: Yes Do you feel safe in your relationship?: Yes Female Reproductive History Menstrual Duration of menses: other (absent due to Mirena) control method: progestin IUCD History History 2 Para 2 Hx # Term Pregnancies Multiple births Hx # Pregnancies Ectopic pregnancies AB induced Hx Number of Living Children 2 AB spontaneous
== END 2021-12-10 12:00 | disposition home or self-care (01) ==
LOC: ER 12-10 01:15 → OBS 12-10 09:04
PROVIDERS: Obstetrics & Gynecology; Admitting Provider Obstetrics & Gynecology; Emergency Provider Physician Assistant; PCP Emergency Medicine; Visit Provider Obstetrics & Gynecology
PROC: 0UT04ZZ Resection of Right Ovary, Percutaneous Endoscopic Approach (ICD-10-PCS; CPT 49320; principal; 2021-12-10 10:15)
DX: D39.8 Neoplasm of uncertain behavior of other specified female genital organs (principal); N84.1 Polyp of cervix uteri; R10.2 Pelvic and perineal pain; R11.2 Nausea with vomiting, unspecified; F41.9 Anxiety disorder, unspecified; Z20.822 Contact with and (suspected) exposure to COVID-19
CPT/HCPCS: 58661; 58662; 80053; 81025; 83690; 87635; 88305; 96361; 96374; 96375; 99285; 74177; 76830; 76856; 81003; 83735; 85025; 88361; G0378; J0131; J0690; J1100; J1885; J2001; J2250; J2270; J2405; J2704

== ENCOUNTER 2022-02-03 21:04 | Outpatient (REF) | payer OTHER, SELFPAY ==
[2022-02-03 20:34] LABS: Bilirubin Negative (Negative); Blood Moderate (Negative); Clarity Clear (Clear); Glucose Negative (Negative); Ketones Negative (Negative); Leukocyte Esterase Small (Negative); Nitrite Negative (Negative); Specific Gravity 1.025 (1.005-1.025); Urobilinogen 0.2 EU/dL (Up TO 0.2)
[2022-02-03 20:56] LABS: Bacteria Few HPF (Negative); C & S Indicated? No; Casts Negative LPF (Negative); Crystals Negative HPF (Negative); Epithelial Cells Moderate HPF (Negative); Mucus Moderate (Negative)
== END 2022-02-03 21:05 | disposition home or self-care (01) ==
LOC: LBN 21:04
PROVIDERS: PCP Family Medicine
DX: N39.0 Urinary tract infection, site not specified (principal); M54.59 Other low back pain
CPT/HCPCS: 81003; 81015

== ENCOUNTER → 2022-09-17 02:51 | Outpatient (CLI) | payer OTHER, SELFPAY ==
--- NOTE | 2022-09-17 15:00 | DI.MAMMO_ITS ---
Exam(s) MAMMO SCREENING EXAM: MAMMO SCREENING CLINICAL HISTORY: screening. TECHNIQUE: Bilateral full field digital CC and MLO mammographic images were obtained with 3D tomosyn thesis and utilizing computer aided detection (CAD). COMPARISON: Prior baseline mammogram of 1018 was reviewed. FINDINGS: Fibroglandular tissue pattern is again noted be dense, this somewhat decreasing the sensitivity of th e mammogram for finding hidden underlying lesions. There are no obvious new findings in left breast. In the right breast there is a suggestion of a new asymmetric density-possible nodule seen on the 3D cc cm view located 2 cm in from the nipple and measuring approximately 7 x 5 millimeters. Scattered benign-appearing microcalcifications are again noted in both breast. There is no significant architectural distortion nor skin thickening-retraction. IMPRESSION: Dense bilateral fibroglandular tissue. No obvious radiographic evidence of malignancy in left breast . Possible new right breast nodule as described above. Spot compression CC right breast view and ul trasound recommended. BI-RADS Category 0 - Assessment Incomplete: Need additional imaging evaluation Breast Density - Category D - Extremely dense Breast density Category C or D implies that the patient has dense breast tissue. Dense breast tissue can make it harder to find cancer on a mammogram. Dense breast tissue is also associated with an incr eased risk of breast cancer. This information about the result of the mammogram report was provided to the patient to raise their awareness. Use this report when you speak with the patient about their risks for breast cancer, which includes their family history. At that time, you may recommend additional screening tests (Ultrasoun d or MRI) as these tests may add significant information. A negative radiographic report should not delay biopsy if a dominant or clinically suspicious mass is present. Up to ten percent of cancers are not identified on mammography. A negative report may reinforce clinical impression. Adenosis and dense breasts may obscure an underlying neoplasm. False positive reports average 6 to 10%. Patient will receive a letter notifying them of these results.
== END ==
PROVIDERS: PCP Family Medicine; Visit Provider Obstetrics & Gynecology
DX: Z12.39 Encounter for other screening for malignant neoplasm of breast (principal); R92.8 Other abnormal and inconclusive findings on diagnostic imaging of breast
CPT/HCPCS: 77063; 77067

== ENCOUNTER → 2022-09-26 00:35 | Outpatient (CLI) | payer OTHER, SELFPAY ==
--- NOTE | 2022-09-26 | DI.MAMMO_ITS ---
Exam(s) MG MAMMO SCREEN CALL BACK UNI US BREAST RT COMPLETE EXAM: MG MAMMO SCREEN CALL BACK UNI and U/S breast RT complete CLINICAL HISTORY: F/U MAMMO, R92.8,NEW ASYMMETRIC DENSITY, ? NODULE, DENSE BREAST TISSUE. TECHNIQUE: Craniocaudal and mediolateral oblique Full Field Digital Mammography views of the right b reast with Computer Aided Diagnosis followed by Tomosynthesis and right breast ultrasound. COMPARISON: Comparison is made with prior examinations. FINDINGS: Mammography/Tomosynthesis: Masses/Architectural Distortion: There is a well-circumscribed nodule in the retroareolar region of t he right breast seen on the additional view. Microcalcifictions: No suspicious pleomorphic-type are seen. Skin Thickening/Nipple Retraction: None. Complete right breast US: Echotexture: Dense fibroglandular tissue is present. Shadowing: No suspicious foci. Cyst: At the 12 o'clock position of the right breast 2 cm from the nipple, there is a cluster of simp le cysts. At the 10 o'clock position 3 cm from the nipple, there is a cluster of simple cysts. In t he retroareolar region, there is a 1.5 x 0.8 cm simple cyst. This would correspond to the mammograph ic abnormality. Solid lesions: None seen. Ductal dilation: None. IMPRESSION: 1. No evidence of malignancy is noted. 2. Unless there is more urgent need, follow-up screening mammography is recommended, as per [place] [employer] guidelines. 3. The findings were discussed with the patient on the date of the examination. BI-RADS Category 2 - Benign Findings Breast Density - Category D - Extremely dense Breast density Category C or D implies that the patient has dense breast tissue. Dense breast tissue can make it harder to find cancer on a mammogram. Dense breast tissue is also associated with an incr eased risk of breast cancer. This information about the result of the mammogram report was provided to the patient to raise their awareness. Use this report when you speak with the patient about their risks for breast cancer, which includes their family history. At that time, you may recommend additional screening tests (Ultrasoun d or MRI) as these tests may add significant information. A negative radiographic report should not delay biopsy if a dominant or clinically suspicious mass is present. Up to ten percent of cancers are not identified on mammography. A negative report may reinforce clinical impression. Adenosis and dense breasts may obscure an underlying neoplasm. False positive reports average 6 to 10%. Patient will receive a letter notifying them of these results.
--- OUTSIDE RECORDS SUMMARY | 2022-09-26 00:39 | XMS_ITS | CCD ---
:1980 Author Care Team Providers Name Role Phone LEONARD BROCK Attending Physician Unavailable LEONARD BROCK Rounding (Secondary) Physician Unavailab kristine Vital Signs Unknown or Not Available. Allergies Unknown or Not Available. Procedures Unknown or Not Available. History of Immunizations Unknown or Not Available. Problems Unknown or Not Available. Results Unknown or Not Available. Active Medications Unknown or Not Available. Medications Administered During Visit Unknown or Not Available. Encounters Encounter Diagnosis Diagnosis Code Start Date Arthritis of left foot [id number] 07/16/2022 Social History Smoking Status Code Start Date End Date Never smoker [id number] Patient Decision Aids Unknown or Not Available. Discharge Instructions You were admitted to [facility] on 07/16/2022 08:12 with a principal diagnosis of Arthritis of left foot You were discharged from [facility] on 07/16/2022 00:00 Should you have any questions prior to d ischarge, please contact a member of your healthcare team. If you have left the spital and have any questions, please contact your primary care physician. Chief Complaint and Reason For Visit Unknown or Not Available. Function Status Unknown or Not Available. Plan of Care Unknown or Not Available. Referral/Transition of Care Unknown or Not Available.
== END ==
PROVIDERS: PCP Family Medicine; Visit Provider Family Medicine
DX: R92.8 Other abnormal and inconclusive findings on diagnostic imaging of breast (principal); N60.01 Solitary cyst of right breast
CPT/HCPCS: 76642; 77063; 77067

== ENCOUNTER 2023-03-05 02:56 | Outpatient (CLI) | payer OTHER, SELFPAY ==
[2023-03-05 14:50] LABS: HCT 38.4 % (36.0-46.0); HGB 12.6 g/dL (11.2-15.7); MCH 28.4 pg (27.0-33.0); MCHC 32.8 % (32.0-36.0); MCV 87 fL (80-95); MPV 9.8 fL (8.0-11.0); Platelet Count 224 10^3/uL (130-400); RBC 4.43 10^6/uL (3.93-5.22); RDW 12.5 % (11.7-14.6); RDW-SD 39.8 fL; WBC 7.77 10^3/uL (4.4-10.8)
[2023-03-05 15:43] LABS: Anion Gap 7.3 mmol/L (3-11); BUN 22 mg/dL (7-18); CO2 28.7 mmol/L (21.0-32.0); CREATININE 0.8 mg/dL (0.55-1.02); Calculated LDL 89 mg/dL (<100); Chloride 102 mmol/L (98-107); Cholesterol 212 mg/dL (<200); Estimated GFR 93.12 (mL/min/1.73m2); Glucose 78 mg/dL (74-106); HDL Cholesterol 97 mg/dL (40-60); Magnesium 1.9 mg/dL (1.8-2.4); Sodium 138 mmol/L (136-145); TSH (W/Ref FT4) 1.76 uIU/mL (0.36-3.74); Triglyceride 132 mg/dL (<150)
== END 2023-03-05 02:57 | disposition home or self-care (01) ==
LOC: LBO 02:56
PROVIDERS: PCP Nurse Practitioner Family; Visit Provider Nurse Practitioner Family
DX: R00.2 Palpitations (principal); E78.5 Hyperlipidemia, unspecified
CPT/HCPCS: 36415; 80048; 80061; 85027; 83735; 84443

== ENCOUNTER → 2023-10-27 01:56 | Outpatient (CLI) | payer OTHER, SELFPAY ==
--- NOTE | 2023-10-27 07:15 | DI.MAMMO_ITS ---
Exam(s) MAMMO SCREENING EXAM: MAMMO SCREENING CLINICAL HISTORY: screening,Z12.39. TECHNIQUE: Bilateral full field digital CC and MLO mammographic images were obtained with 3D tomosyn thesis and utilizing computer aided detection (CAD). COMPARISON: Prior mammograms were reviewed. Prior breast ultrasound September 2022 was also reviewed FINDINGS: The fibroglandular tissue pattern is again noted be quite dense, this somewhat decreasing the sensiti vity of the mammogram for finding hidden underlying lesions. No new obvious significant findings in left breast. In the right breast the previously described nodular density located 2 cm in from the nipple on the 3 D cc view is again noted, unchanged. There are no new spiculated masses nor malignant-appearing microcalcification groups. Benign microca lcifications are again noted in both breasts. There is no obvious new significant architectural distortion nor skin thickening-retraction. IMPRESSION: Very dense bilateral fibroglandular tissue. Stable benign-appearing finding in the right breast whic h is unchanged from mammogram of 09/17/2022. Apparently shown to be a cyst on interval ultrasound. No obvious radiographic evidence of malignancy. BI-RADS Category 2 - Benign Findings Breast Density - Category D - Extremely dense Breast density Category C or D implies that the patient has dense breast tissue. Dense breast tissue can make it harder to find cancer on a mammogram. Dense breast tissue is also associated with an incr eased risk of breast cancer. This information about the result of the mammogram report was provided to the patient to raise their awareness. Use this report when you speak with the patient about their risks for breast cancer, which includes their family history. At that time, you may recommend additional screening tests (Ultrasoun d or MRI) as these tests may add significant information. A negative radiographic report should not delay biopsy if a dominant or clinically suspicious mass is present. Up to ten percent of cancers are not identified on mammography. A negative report may reinforce clinical impression. Adenosis and dense breasts may obscure an underlying neoplasm. False positive reports average 6 to 10%. Patient will receive a letter notifying them of these results.
== END ==
PROVIDERS: PCP Nurse Practitioner Family; Visit Provider Nurse Practitioner Family
DX: Z12.31 Encounter for screening mammogram for malignant neoplasm of breast (principal); R92.323 Mammographic fibroglandular density, bilateral breasts
CPT/HCPCS: 77063; 77067

== ENCOUNTER 2024-01-04 09:08 | Day surgery (SDC) | payer OTHER, SELFPAY ==
--- NOTE | 2024-01-03 17:39 | W.PM.DSUDISC ---
Date of service: 01/04/24 Time of Service: 10:23 Discharge Plan Disposition Patient Disposition: Home Condition: Good Discharge Details Reason For Visit: screening colonoscopy Attending Provider: Ralph Rivas Primary Care Provider: Blaire Baez Home Meds and New Rx's Prescriptions: Continued omega 8-kqf-jyp-fish oil [Fish Oil] 60-90-500 mg capsule 1 cap PO DAILY cholecalciferol (vitamin D3) 10 mcg (400 unit) capsule 10 mcg PO DAILY vitamin B complex Tablet 1 tab PO DAILY estradiol 1 mg tablet 1 mg PO DAILY Qty: 90 4RF lorazepam 0.5 mg tablet 0.5 mg PO QHS PRN (Reason: anxiety) Qty: 30 3RF Rx Instructions: One to three tablets hs valacyclovir [Valtrex] 1 gram tablet 2,000 mg PO BID Qty: 4 2RF Rx Instructions: Take 2 tabs twice daily for 1 day Discontinued bisacodyl [Dulcolax (bisacodyl)] 5 mg tablet,delayed release (DR/EC) 5 mg PO ONCE Qty: 4 0RF Rx Instructions: Take per colonoscopy instructions provided by ordering providers office polyethylene glycol 3350 17 gram/dose powder 17 g PO ONCE Qty: 238 0RF Rx Instructions: Take per colonoscopy instructions provided by ordering providers office Discharge Instructions Instructions: Colorectal Polyps (GEN) Additional Instructions: Alida, you did great during the colonoscopy today, and I hope it was comfortable for you. Your prep was outstanding, and we could see everything just fine. I did find 1 polyp in the ascending portion of your colon. I removed this, and similar to Mukul's experience, and will be sent off for testing. While I will remain optimistic that it will be a hyperplastic polyp, my suspicion is that this polyp may bring you back sooner than 10 years. Regardless, as soon as I have the information I will be in touch. If you have any questions at all, please do not hesitate to ask at any point. 1. If tolerated, consume a soft, low fiber diet for 1-2 days. 2[address] Do not drive, drink alcohol, operate machinery, make critical decisions, or do activities that require coordination or balance for 24 hours. 3. Because air was put into your colon during the procedure, expelling air from your rectum (passing gas or farting) is normal. 4. You may not have a bowel movement for 1-3 days because of the colonoscopy prep. This is normal. 5. Go directly to the emergency room if you notice any of the following: Develop chills (warm to touch), or if you have a thermometer and your temperature is above 101 Difficulty breathing or difficultly swallowing Persistent vomiting Severe abdominal pain, other than gas cramps Severe chest pain Black, tarry stools Any bleeding ? exceeding one tablespoon 6. Call your physician if the site where your intravenous was started becomes red, swollen, painful, and warm to touch. 7. Your physician has reviewed your pre-procedure medications. Please continue to take those medications as previously ordered. You will be given specific information/education regarding any changes to your medications before leaving. Activity:: Activity as Tolerated Diet:: As Tolerated Discharge Orders Discharge Orders: Discharge Order (Routine); Ordered 01/03/24 Ordered By: Ralph Rivas DS: Diagnosis Discharge Diagnosis (1) Encounter for screening colonoscopy: Status: Acute Asessment and Plan: Follow-up on polypectomy results
--- NOTE | 2024-01-03 17:41 | W.COLOREPORT ---
Date of service: 01/04/24 Time of Service: 10:29 Colonoscopy Report Date of procedure: 01/04/24 Pre-op diagnosis general: screening colonoscopy Post-op diagnosis procedure note: other (Ascending colon polyp) Procedure: colonoscopy with polypectomy Surgeon: Ralph Rivas Anesthesia Type: General:No Airway Estimated blood loss (mL): 5 Pathology: other (0.75 cm ascending colon polyp) Complications: None Disposition: same day Indications: Alida is a 43 year old woman who needs her first screening colonoscopy Prep: Miralax/Dulcolax Procedure Start Time: 09:55 Procedure End Time: 10:14 Retraction Time: 12 Findings: 0.75 cm flat polyp in the ascending colon Procedure Description: After the induction of anesthesia, and with the patient in left lateral decubitus position, I began by performing an external anorectal exam.? Perineum and skin were normal, as was the anal verge.? There was no evidence of external hemorrhoids.? Next, I performed a digital rectal exam.? I did not appreciate any abnormal findings.? Next, I advanced a colonoscope into the rectal vault.? I performed retroflexion.? This was normal.? Using insufflation, I then advanced the colonoscope beyond the rectal folds and into the sigmoid colon before advancing towards the cecum.? The quality of the prep was outstanding.? The scope was noted to be in the cecum by identification of the ileocecal valve and appendiceal orifice.? I then began withdrawing the colonoscope using repeated irrigation as necessary for full evaluation of the colonic mucosa. Within the ascending colon was a 0.75 centimeter flat polyp. This was removed with cold forceps. There was minimal bleeding. Once the scope was withdrawn to the level of the rectum, great care was taken to examine portions of the rectal folds.? Finally, the scope was withdrawn and the patient was brought to the same-day surgery recovery unit as the anesthetic wore off. ?The findings and instructions were shared with the patient prior to discharge. [place] Bowel Prep [place] Bowel Prep Right Colon: 3 Left Colon: 3 Transverse Colon: 3 Total Score: 9
[2024-01-04 09:23] VITALS: BP 134/82; PULSE 58; RESP 16; TEMP 36.7; O2SAT 100
[2024-01-04] MEDS: Lactated Ringers 1,000 ML 80 ML IV (09:39)
--- NOTE | 2024-01-04 09:39 | W.ANESPRE ---
General Info Date of Service Date Performed: 01/04/24 Height: 5 ft 6 in Weight: 62.1 kg Body Mass Index (BMI): 22.1 Surgical Procedure: Operation Date: 01/04/24 10:35 Proposed Procedure Side Surgeon doretha Rivas MD Meds Allergies and Home Medications Allergies Allergy/AdvReac Type Severity Reaction Status Date / Time chlorhexidine AdvReac Severe RASH Uncoded 01/04/24 09:32 Home Medication Medication Instructions Recorded lorazepam 0.5 mg tablet 0.5 mg PO QHS PRN anxiety #30 tabs 02/04/20 valacyclovir 1 gram tablet 2,000 mg (2 x 1 gram) PO BID #4 08/05/23 (Valtrex) tabs cholecalciferol (vitamin D3) 10 10 mcg PO DAILY 11/06/23 mcg (400 unit) capsule estradiol 1 mg tablet 1 mg PO DAILY #90 tabs 11/06/23 omega 1-tgn-sgj-fish oil 60 mg-90 1 cap PO DAILY 11/06/23 mg-500 mg capsule (Fish Oil) vitamin B complex 1 tab PO DAILY 11/06/23 Current Visit Medications: Current Medications Generic Name Dose Route Start Last Admin Trade Name Freq PRN Reason Stop Dose Admin Hyoscyamine Sulfate 0.125 mg 01/03/24 17:42 Hyoscyamine 0.125 Mg Sl/Oral/Chew SL 02/02/24 17:41 DIRECTED PRN Ringer's Solution 1,000 mls @ 80 mls/hr 01/04/24 06:00 IV 01/31/24 23:59 INFUSION [facility] IV Miscellaneous Supplies 1 each 01/04/24 06:00 Iv Access IV 01/31/24 23:59 DIRECTED ANA Ondansetron HCl 4 mg 01/03/24 17:42 Ondansetron 4 Mg/2 Ml Vial IVP 02/02/24 17:41 Q4H PRN PRN Nausea / Vomiting Sodium Chloride 0 ml 01/04/24 06:00 Normal Saline Flush 10 Ml Syr IV 01/31/24 23:59 PRN PRN Sodium Chloride 0 ml 01/04/24 06:00 Normal Saline 10 Ml Vial IJ 01/31/24 23:59 DIRECTED PRN Sterile Water 0 ml 01/04/24 06:00 Water,Injection,Sterile 10 Ml Vial IJ 01/31/24 23:59 DIRECTED PRN PFSH Active Problems Active Problems: Problem Status Onset Code Encounter for screening colonoscopy Z12.11 Generalized anxiety disorder F41.1 Hyperlipidemia E78.5 Surgical menopause on hormone replacement therapy E89.40, Z79.890 Allergic rhinitis J30.9 Medical History Medical History BCC (basal cell carcinoma), face 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 No routine f/u necessary Endometriosis Chronic pain of left ankle Surgical History Surgical History History of left salpingo-oophorectomy (01/20/22) History of ankle surgery History of right salpingo-oophorectomy (12/10/21) Ruptured endometriotic borderline ovarian tumor Status post total hysterectomy (01/20/22) Total hyst-LSO, uterus<250gm secondary to neoplasm of R ovary w/borderline malignant features Tobacco Smoking/Tobacco Use Status: Never Passive smoking exposure: No Second hand exposure: No Alcohol Alcohol Intake: current Alcohol intake frequency: a few times a week Alcohol type: beer and wine Substance Use Substance use: Never Substance use type: does not use Prental History History 2 Para 2 Hx # Term Pregnancies Multiple births Hx # Pregnancies Ectopic pregnancies AB induced Hx Number of Living Children 2 AB spontaneous Vital Signs and Lab Results Vital Signs Most Recent Vital Signs in EMR: Most Recent Vital Signs Temp Pulse Resp BP Pulse Ox 36.7 C 58 L 16 134/82 100 01/04/24 09:23 01/04/24 09:23 01/04/24 09:23 01/04/24 09:23 01/04/24 09:23 Lab Results Blood Type / Crossmatch: No Data to Display Complete Blood Count: No Data to Display Complete Metabolic Panel: No Data to Display Liver Function Panel: No Data to Display Coagulation Panel: No Data to Display Cardiac Panel: No Data to Display Arterial Blood Gas: No Data to Display Venous Blood Gas: No Data to Display Pancreas Panel: No Data to Display Thyroid Panel: No Data to Display Infectious Disease: No Data to Display Blood Cultures: No Data to Display Toxicology Panel: No Data to Display Panel: No Data to Display Anesthesia Assessment and Plan Anesthesia History Personal History: No History of Anesthesia Complications Family History: No Family History of Anesthesia Complications Exercise Tolerance Exercise Tolerance: Metabolic Equivalents>4 Pertinent Negatives Pertinent Negatives: No Symptoms of GERD, No Major Cardiovascular Symptoms or Complaints and No Major Pulmonary Symptoms or Complaints Cardiac & Pulmonary Exam Cardiac Exam: Normal S1/S2 Heart Sounds Pulmonary Exam: Clear Bilateral Breath Sounds Implantable Cardiac Device Does patient have a Pacemaker or an ICD?: No Airway Exam Known Difficult Airway: No Mallampati Class: 1 Mouth Opening: Normal (> 3cm) Thyromental Distance: Greater than 3 cm Neck Range of Motion: Full ROM Neck Circumference: Normal Teeth Condition: Normal Dentition ASA Classification ASA Score: ASA 2 Emergency Case?: No NPO Status NPO Status: NPO Clears >2 hours, Solids >8 hours Status Status: History of Hysterectomy Anesthesia Plan Resuscitation Status: Full Code Anesthesia Technique: General Anesthesia Airway Planned: Natural Airway Monitors Used: Standard Monitors
[2024-01-04 09:40] VITALS: BMI 22.1
--- NOTE | 2024-01-04 10:05 | BOWEL_PTH ---
PATIENT: Albina Tony LOC: [facility] U#:[id number] AGE/SX: 43/F ROOM: RE01/04/[address]: Ralph Rivas MD : 1980 BED: DIS: 01/04/2024 SPEC #: [id number] RECD: 01/04/24 12:53 STATUS: GARETT RE #: [id number] SAMY: 01/04/24 10:[address]: Ralph Rivas DEPT: Surgical Specimen RECD BY: Soumya Delaney ENTERED: 01/04/24 12:54 SP TYPE: Bowel OTHR DR: Blaire Baez, ALETHA Tissues: 1 - BIOPSY BOWEL Procedures: GROSS AND MICRO LEVEL 4 Comments: [id number]
[2024-01-04 10:24] VITALS: BP 106/70; PULSE 60; RESP 16; TEMP 36.4; O2SAT 98
[2024-01-04 10:40] VITALS: BP 117/75; PULSE 61; RESP 18; TEMP 36.6; O2SAT 98
--- NOTE | 2024-01-04 11:54 | W.ANESPOSTOP ---
Postoperative Evaluation Date, Time and Location Date Performed: 01/04/24 Time Performed: 10:50 Patient Location: Day Surgery Unit Vital Signs Most Recent Imported Vital Signs: Most Recent Vital Signs Temp Pulse Resp BP Pulse Ox 36.6 C 61 18 117/75 98 01/04/24 10:40 01/04/24 10:40 01/04/24 10:40 01/04/24 10:40 01/04/24 10:40 Pain Score Most Recent Pain Score: Most Recent Pain Score Pain Level 0 01/04/24 10:40 Assessment Mental Status: Awake (Alert & Oriented to Patient Baseline) Airway and Respiratory Function: Patent airway with normal (patient baseline) respiratory exam Cardiovascular Function: Hemodynamically Stable Hydration Status: Adequately Hydrated Nausea & Vomiting: No Nausea or Vomiting Pain: Pt. Denies Any Pain Peripheral Nerve Block: Patient did not receive a nerve block
== END 2024-01-04 11:18 | disposition home or self-care (01) ==
LOC: SUR 09:08
PROVIDERS: PCP Nurse Practitioner Family; Visit Provider Surgery
PROC: 0DJD8ZZ Inspection of Lower Intestinal Tract, Via Natural or Artificial Opening Endoscopic (ICD-10-PCS; CPT 45378; principal; 2024-01-04 10:30)
DX: Z12.11 Encounter for screening for malignant neoplasm of colon (principal); D12.2 Benign neoplasm of ascending colon
CPT/HCPCS: 45380; 88305; J2704

== ENCOUNTER 2024-09-27 01:33 | Outpatient (CLI) | payer OTHER, SELFPAY ==
--- NOTE | 2024-09-27 | DI.US_ITS ---
Exam(s) US BREAST LT COMPLETE MG MAMMO DIAGNOSTIC BI EXAM: MG MAMMO DIAGNOSTIC BI AND COMPLETE LEFT BREAST ULTRASOUND CLINICAL HISTORY: odd sensation in left breast,PAIN LT BREAST,N64.4. TECHNIQUE: Bilateral CC and MLO mammographic images were obtained with 3D tomosynthesis technique an d utilizing computer aided detection (CAD). Also performed spot compression views of the symptomatic left breast. Complete left breast ultrasound was performed including all 4 quadrants as well as the axillary regio n. This 44-year-old patient has occasional pain in her left breast but denies a lump. She had a hystere ctomy and oophorectomy few years ago, apparently for endometriosis. Prior to that she had premenstru al tenderness in breasts. COMPARISON: Prior mammograms were reviewed. FINDINGS: DIAGNOSTIC BILATERAL MAMMOGRAM: The fibroglandular tissue pattern is again noted be dense, this somewhat decreasing the sensitivity o f the mammogram for finding hidden underlying lesions. In the most lateral aspect of the left breast there is a nodular density on the 1st MLO image which i s most probably a skin mole. Medially in the left breast on the CC view there is an asymmetric densi ty-possible nodule. This is equivocal on spot spot compression 3D view. There are scattered benign- appearing microcalcifications in both breasts. There are no obvious spiculated masses nor malignant-appearing microcalcification groups in either br east. There is no significant architectural distortion or skin thickening-retraction. COMPLETE LEFT BREAST ULTRASOUND: At the 12 o'clock position there is a conglomeration microcysts with combined measurement of 1.6 x 1. 0 cm. There are multiple microcysts at the 3 o'clock position. There is also a conglomeration microcysts m easuring 1.2 x 0.6 cm at the 3 o'clock position. There is also a cyst at the 8 o'clock position arlene uring 1.4 cm which corresponds to finding on the mammogram in the medial aspect of the breast on the CC view. Most importantly, there are no solid lesions in all 4 quadrants of the left breast. Scanning of the left axilla is negative for adenopathy. IMPRESSION: 1. Dense bilateral fibroglandular tissue. No obvious radiographic evidence of malignancy. 2. There are multiple cysts and microcysts in the symptomatic left breast. There are no solid lesion s in the left breast. Appropriate follow-up is repeat ultrasound in 6 months. Recommend that she undergo bilateral breast ultrasound at that time, given the density of her fibroglandular tissue and the multiple cysts seen i n the symptomatic left breast.. The patient was informed of the findings and follow-up recommendations by myself prior to leaving the department today. BI-RADS Category 3 - 6 month - Probably Benign Finding: Recommend follow-up mammography in 6 months Breast Density - Category D - Extremely dense Breast density Category C or D implies that the patient has dense breast tissue. Dense breast tissue can make it harder to find cancer on a mammogram. Dense breast tissue is also associated with an incr eased risk of breast cancer. This information about the result of the mammogram report was provided to the patient to raise their awareness. Use this report when you speak with the patient about their risks for breast cancer, which includes their family history. At that time, you may recommend additional screening tests (Ultrasoun d or MRI) as these tests may add significant information. A negative radiographic report should not delay biopsy if a dominant or clinically suspicious mass is present. Up to ten percent of cancers are not identified on mammography. A negative report may reinforce clinical impression. Adenosis and dense breasts may obscure an underlying neoplasm. False positive reports average 6 to 10%. Patient will receive a letter notifying them of these results.
== END 2024-09-27 01:53 ==
LOC: DI 01:33
PROVIDERS: PCP Nurse Practitioner Family; Visit Provider Nurse Practitioner Family
DX: N64.4 Mastodynia (principal); Z12.31 Encounter for screening mammogram for malignant neoplasm of breast; R92.323 Mammographic fibroglandular density, bilateral breasts
CPT/HCPCS: 76642; 77062; 77066; G0279

== ENCOUNTER 2025-05-30 14:25 | Outpatient (CLI) | payer OTHER, SELFPAY ==
--- NOTE | 2025-05-30 14:00 | DI.RAD_ITS ---
Exam(s) XR KNEE RT 3V AP,LAT,KILLIAN EXAM: XR KNEE RT 3V AP,LAT,KILLIAN CLINICAL HISTORY: RIGHT KNEE INJURY. TECHNIQUE: 2D digital imaging was performed of the right knee. Three views obtained. Merchant, AP and lateral views were obtained. COMPARISON: No exams were available for comparison FINDINGS: BONES: No acute fracture is present. No bony destructive lesion is seen. JOINTS: The knee is normally aligned. There is a small joint effusion. There is mild spurring of the posterior patella. SOFT TISSUE: There is a benign-appearing calcification in the soft tissues adjacent to the head of the fibula. There is soft tissue swelling anterior to the patella. IMPRESSION: 1. No acute fracture or dislocation is identified. 2. Soft tissue swelling anterior to the patella. 3. Tiny joint effusion. DATA REPOSITORY: RADIATION DOSE DELIVERED:
== END 2025-05-30 14:26 | disposition home or self-care (01) ==
LOC: DIORS 14:25
PROVIDERS: PCP Nurse Practitioner Family; Visit Provider Student in an Organized Health Care Education/Training Program
DX: M25.561 Pain in right knee (principal); M79.89 Other specified soft tissue disorders
CPT/HCPCS: 73562

== ENCOUNTER 2025-06-06 14:13 | Outpatient (CLI) | payer OTHER, SELFPAY ==
--- NOTE | 2025-06-06 13:30 | DI.RAD_ITS ---
Exam(s) XR HIP LT COMPLETE AP PELVIS EXAM: XR HIP LT COMPLETE AP PELVIS CLINICAL HISTORY: LEFT HIP PAIN. TECHNIQUE: 2D digital imaging was performed. Two views. COMPARISON: No exams were available for comparison FINDINGS: BONES: No acute fracture is present. No bony destructive lesion is seen. JOINTS: No dislocation present. The SI joints and pubic symphysis are intact. No significant degenerative changes. SOFT TISSUE: Normal. IMPRESSION: Unremarkable radiographs of the left hip. DATA REPOSITORY: RADIATION DOSE DELIVERED:
== END 2025-06-06 14:14 | disposition home or self-care (01) ==
LOC: DIORS 14:13
PROVIDERS: PCP Nurse Practitioner Family; Visit Provider Student in an Organized Health Care Education/Training Program
DX: M25.552 Pain in left hip (principal)
CPT/HCPCS: 73502

== ENCOUNTER 2025-08-01 03:21 | Outpatient (CLI) | payer OTHER, SELFPAY ==
[2025-08-01 12:21] LABS: Abs Immature Grans 0.01 10^3/uL (0.0-0.06); HCT 39.5 % (36.0-46.0); HGB 12.8 g/dL (11.2-15.7); Immature Grans % 0.2 %; MCH 28.0 pg (27.0-33.0); MCHC 32.4 % (32.0-36.0); MCV 86 fL (80-95); MPV 10.6 fL (8.0-11.0); Platelet Count 225 10^3/uL (130-400); RBC 4.57 10^6/uL (3.93-5.22); RDW 12.6 % (11.7-14.6); RDW-SD 39.8 fL; WBC 6.09 10^3/uL (4.4-10.8)
[2025-08-01 12:36] LABS: ALT 24 U/L (14-59); AST 18 U/L (15-37); Albumin 3.7 g/dL (3.4-5.0); Alkaline Phosphatase 63 U/L (46-116); Anion Gap 8.1 mmol/L (3-11); BUN 18 mg/dL (7-18); Bilirubin, Total 0.4 mg/dL (0.2-1.0); CO2 28.9 mmol/L (21.0-32.0); Calcium 9.1 mg/dL (8.5-10.1); Chloride 102 mmol/L (98-107); Estimated GFR 91.40 (mL/min/1.73m2); Glucose 82 mg/dL (74-106); Potassium 3.9 mmol/L (3.5-5.1); Sodium 139 mmol/L (136-145); Total Protein 7.0 g/dL (6.4-8.2)
[2025-08-01 12:48] LABS: D-Dimer 375 ng/mlFEU (<500)
== END 2025-08-01 03:22 | disposition home or self-care (01) ==
LOC: LOS 03:21
PROVIDERS: PCP Nurse Practitioner Family; Visit Provider Nurse Practitioner Family
DX: R07.89 Other chest pain (principal)
CPT/HCPCS: 36415; 80053; 85025; 85379